=== PATIENT | female | born 1990 | race Caucasian/White ===

== ENCOUNTER 2016-12-06 15:13 | Emergency (ER) | payer OTHER ==
[~2016-12-06] VITALS: Ht 162.6 cm; Wt 53.5 kg
[2016-12-06] MEDS ORDERED: MUCINEX600 MG PO (15:23)
[2016-12-06] MEDS ORDERED: SINGULAIR 10 MG10 M1 PO (15:23)
[2016-12-06 16:22] LABS: URINE BILIRUBIN NEGATIVE (Negative); URINE BLOOD 3+ (Negative); URINE COLOR YELLOW; URINE GLUCOSE-RANDOM* NEGATIVE (Negative); URINE KETONES NEGATIVE (Negative); URINE NITRITE NEGATIVE (Negative); URINE PROTEIN (DIPSTICK) TRACE (Negative); URINE SPECIFIC GRAVITY 1.015 (1.003-1.035); URINE UROBILINOGEN 0.2 E.U./dl (0.2-1.0)
[2016-12-06 16:29] LABS: SQUAMOUS 0-3 Few /LPF (0-3); URINE WBC None Seen /HPF (0-5)
[2016-12-06 16:30] LABS: CASTS None Seen /LPF (None Seen); CRYSTALS None Seen /LPF (None Seen); URINE RBC 3-10 Few /HPF (0-2)
[2016-12-06 17:16] VITALS: BP 130/85
== END 2016-12-06 17:16 | disposition home or self-care (01) ==
LOC: ER 15:13
PROVIDERS: Nurse Practitioner Family
DX: R55 Syncope and collapse (principal); J45.909 Unspecified asthma, uncomplicated